=== PATIENT | female | born 1985 | race Caucasian/White ===

== ENCOUNTER → 2017-12-19 10:47 | Outpatient (CLI) | payer MEDICAID, SELFPAY ==
[2017-12-19 14:02] LABS: Chlamydia Trachomatis by PCR Negative (Negative); Neisserai gonorrhoeae by PCR Negative (Negative); Probe Check PASS; Sample Adequacy Control PASS; Specimen Processing Control PASS
[2017-12-21 13:02] LABS: HPV Reflexed? NOT INDICATED
== END ==
PROVIDERS: Visit Provider Obstetrics & Gynecology
DX: Z12.4 Encounter for screening for malignant neoplasm of cervix (principal); Z11.3 Encounter for screening for infections with a predominantly sexual mode of transmission
CPT/HCPCS: 87491; 87591; 88175; G0145

== ENCOUNTER 2018-05-09 13:05 | Outpatient (CLI) | payer SELFPAY ==
[2018-05-09 13:33] VITALS: BMI 28.8
[2018-05-09 13:45] LABS: Mucous, Urine 0 SEEN /hpf (<or=2+); Red Blood Cells-Urine 0 SEEN /hpf (0-5)
[2018-05-09 13:58] LABS: Color, Urine Yellow (Yellow); Glucose, Dipstick Normal (Normal); Ketone-Dipstick Negative (Negative); Leukocyte Esterase-Dipstick Negative /ul (Negative); Nitrite-Dipstick Negative (Negative); Occult Blood-Urine Negative /ul (Negative); Protein-Dipstick Negative (Negative); Urine Bilirubin Dipstick Negative (Negative); Urine Clarity Sl. Cloudy (Clear); Urine Urobilinogen Normal (Normal)
[2018-05-09 14:10] LABS: Bacteria RARE /hpf (None Seen); Squamous Epithelial Cells - UA 0-5 SEEN /hpf (5-10); White Blood Cells 0-5 SEEN /hpf (0-5)
[2018-05-09 15:56] LABS: Fetal Fibronectin Negative
--- NOTE | 2018-05-09 22:34 | OB.TRI.NOTE ---
History of Present Illness Was patient seen by the physician?: No Reason For Visit: R/O PRE TERM LABOR Date of Service: 05/09/18 Final SULTANA: 08/12/18 Final SULTANA Source: US <20 weeks Gestational age: 26 Weeks and 3 Days History of Present Illness: 26+ week intrauterine presents with some mild contractions to labor and delivery. Apparently this is been a problem for her for the past several weeks and she has seen physicians in [place] where she resides for this problem. Michelle was seen early in the by Dr. Miranda and decided to move to [place]. She recently came to [place] and when she began having these contractions presented to labor and delivery. Her last baby had cystic fibrosis so the patient is a known carrier. She also had a previous . Allergies bupropion [From Wellbutrin] Allergy (Verified 12/21/16 06:59) Other tachycardia prednisone Allergy (Verified 12/21/16 06:59) Other muscle spasms Laboratory Studies: Laboratory Tests 05/09/18 05/09/18 Range/Units 15:00 13:20 Urine Color Yellow (Yellow) Urine Clarity Sl. Cloudy (Clear) Urine pH 7.0 (5.0 - 8.0) Ur Specific [place] 1.010 (1.002-1.030) Urine Protein Negative (Negative) mg/dl Urine Glucose (UA) Normal (Normal) mg/dl Urine Ketones Negative (Negative) mg/dl Urine Occult Blood Negative (Negative) /ul Urine Nitrite Negative (Negative) Urine Bilirubin Negative (Negative) mg/dL Urine Urobilinogen Normal (Normal) mg/dl Ur Leukocyte Esterase Negative (Negative) /ul Urine RBC 0 SEEN (0-5) /hpf Urine WBC 0-5 SEEN (0-5) /hpf Ur Squamous Epith Cells 0-5 SEEN (5-10) /hpf Urine Bacteria RARE (None Seen) /hpf Urine Mucus 0 SEEN (<or=2+) /hpf Fibronectin Negative NST - FHR Rate Baby A NST Reactive:: Appropriate for gestational age Uterine Activity:: Mild uterine irritability noted. Impression/Plan 26+ week intrauterine with transient contractions. Cervix is nonthreatening and closed thick and high. fibronectin done and was negative. Will discharge patient to home and encouraged bed rest and plenty of fluids. She is instructed to follow-up with either our office or her office in [place] early next week. Return immediately if contractions grow stronger or if she has any leaking of fluid or bleeding.
== END 2018-05-09 16:51 | disposition home or self-care (01) ==
LOC: WPOUT 13:29 → WP 13:30
PROVIDERS: Referring Provider Obstetrics & Gynecology; Visit Provider Obstetrics & Gynecology
DX: O34.211 Maternal care for low transverse scar from previous cesarean delivery (principal); Z14.1 Cystic fibrosis carrier; Z3A.26 26 weeks gestation of pregnancy
CPT/HCPCS: 59025; 59050; 81001; 82731; 99218; G0378

== ENCOUNTER 2022-01-07 22:15 | Emergency (ER) | payer MEDICAID, SELFPAY ==
[2022-01-07 22:15] VITALS: BP 120/82; PULSE 68; RESP 16; TEMP 36.7; O2SAT 99; BMI 29.4
--- NOTE | 2022-01-07 22:34 | EDS_ITS ---
HPI History of Present Illness Chief Complaint: Other, Pain/Inj Informant: patient Narrative Narrative: 6-year-old female presenting to the emergency department with acute neck pain. Patient states that August and September she had pain in her neck was seen at a [facility] facility was told that she had C4 and C5 slippage. 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 She followed up with neurology this past week and has MRI scheduled for next week. Today she was getting out of the shower and getting ready and all of a sudden had significant pain in her upper neck. She states she feels better if she lifts her head up off of her neck to decompress it. She states she has limited mobility because of pain. She notes that she started Humira about 2 months ago. She does not get chronic back injections. She has no IVD use, chronic steroid use, fevers, or known trauma. [facility] Medical History (Updated 01/07/22 @ 22:[address] Jerry Finley DO) Depression Home Medications adalimumab 40 mg/0.8 mL subcutaneous syringe kit (Humira) mg subcut 01/07/22 [History Last Taken Unknown] atorvastatin 10 mg tablet 10 mg PO QHS 01/07/22 [History Last Taken Unknown] cholecalciferol (vitamin D3) 50 mcg (2,000 unit) tablet (Vitamin D3) 50 mcg PO DAILY 01/07/22 [History Last Taken Unknown] diazepam 5 mg tablet 5 mg PO Q8 PRN Muscle Spasm #16 tabs 01/07/22 [Rx Last Taken Unknown] ferrous sulfate 325 mg (65 mg iron) tablet (Iron (ferrous sulfate)) 325 mg PO DAILY 01/07/22 [History Last Taken Unknown] fluoxetine 20 mg capsule (Prozac) 20 mg PO DAILY 01/07/22 [History Last Taken Unknown] gabapentin 300 mg capsule 300 mg PO BID 01/07/22 [History Last Taken Unknown] oxycodone-acetaminophen 5 mg-325 mg tablet 1 tab PO Q6H PRN PRN Pain 3 days #12 TABLETS 01/07/22 [Rx Last Taken Unknown] Allergy/AdvReac Type Severity Reaction Status Date / Time No Known Allergies Allergy Verified 01/07/22 22:21 Surgical History (Updated 01/07/22 @ 22:[address] Jerry Finley DO) Previous delivery affecting , delivered Social History Smoking Status: Former smoker substance use type: does not use ROS ROS ED Constitutional Constitutional ED: Denies chills or weight loss Eyes Eyes: Denies change in vision or diplopia ENT ENT ED: Denies ear pain, rhinorrhea or sore throat Cardiovascular Cardiovascular: Denies chest pain, orthopnea, palpitations or racing heartbeat Respiratory/Chest Respiratory/Chest: Denies cough, dyspnea or orthopnea Gastrointestinal Gastrointestinal: Denies abdominal pain, diarrhea, nausea or vomiting Genitourinary Genitourinary ED: Denies dysuria, hematuria or urinary frequency Musculoskeletal Musculoskeletal: Reports neck pain; Denies arthralgias, back pain or myalgias Integumentary Denies abscess or rash Neurologic Neurologic: Denies headache(s) or weakness Psychiatric Psychiatric: Denies anxiety, depression, suicidal ideation or suicidal thoughts Endocrine Endocrinology: Denies polydipsia, polyphagia or polyuria Allergic/Immunologic Allergic/Immunologic ED: Denies mouth swelling, tongue swelling or urticaria EXAM Physical Exam Const Vital Signs: 01/07/22 22:15 Temperature 98.1 F Temperature Source Temporal Pulse Rate 68 Respiratory Rate 16 Blood Pressure 120/82 H Blood Pressure Mean 94 Pulse Ox 99 Oxygen Delivery Method Room Air Positive well nourished and well developed General Appearance ED: well developed HEENT Reports normocephalic, head/scalp atraumatic and moist mucous membranes Eyes PERRL and EOMs intact bilaterally Neck no lymphadenopathy, supple and no JVD Neck Narrative: Patient is limited range of motion of the neck. She has tenderness to palpation of the suboccipital triangle region. There are no tissue texture changes to suggest underlying infection. Upper extremities test normal in motor and sensation. Resp normal respiratory effort and clear to auscultation bilaterally Cardio regular rate, regular rhythm and no murmurs GI normal to inspection, nondistended, normoactive bowel sounds and non-tender Palpation: soft Back/Spine no CVA tenderness and normal ROM Extremity normal to inspection General Extremety ED: Negative for edema General Extremity: Negative for edema Neuro oriented x3 and CN's II-XII intact bilaterally Sensorium / Orientation: alert Motor Exam: strength 5/5 throughout Psych mental status grossly normal Mood & Affect: Negative for depressed or tearful Skin no rashes or lesions noted and no wounds MDM MDM MDM Narrative Medical decision making narrative: I believe this to be muscular in nature. I will write for the patient to have some Valium and pain medication at home. Would recommend following up with her doctors as scheduled. Discharge Plan Triage Chief Complaint: Other, Pain/Inj ED Provider: Jerry Finley Dx/Rx/DC Orders Clinical Impression: Acute neck pain, Acute cervical myofascial strain Instructions: ED Neck Pain Prescriptions: New oxycodone-acetaminophen [oxycodone-acetaminophen] 5-325 mg tablet 1 tab PO Q6H PRN PRN (Reason: Pain) 3 Days Qty: 12 0RF diazepam [diazepam] 5 mg tablet 5 mg PO Q8 PRN (Reason: Muscle Spasm) Qty: 16 0RF No Action gabapentin 300 mg Capsule 300 mg PO BID fluoxetine [Prozac] 20 mg Capsule 20 mg PO DAILY Humira 40 mg/0.8 mL Syringe Kit SUBCUT Rx Instructions: inject one - 40 mg/0.8 mL syringe every 2 weeks atorvastatin 10 mg Tablet 10 mg PO QHS ferrous sulfate [Iron (ferrous sulfate)] 325 mg (65 mg iron) Tablet 325 mg PO DAILY cholecalciferol (vitamin D3) [Vitamin D3] 50 mcg (2,000 unit) Tablet 50 mcg PO DAILY Primary Care Provider: Care Physician,No Primary Referrals: Soren Vasquez MD [NON-STAFF] - Keep [facility] appointment Care Physician,No Primary [Primary Care Provider] - Disposition Disposition: Home, Self Care
[2022-01-07] MEDS: Ketorolac 60 MG/2 ML Vial IM (22:42)
[2022-01-07] MEDS: oxyCODONE 5 MG Tablet PO (22:42)
[2022-01-07] MEDS: diazePAM 5 MG Tablet PO (22:42)
== END 2022-01-07 23:12 | disposition home or self-care (01) ==
LOC: ED 23:03
PROVIDERS: Emergency Provider Emergency Medicine; Visit Provider Emergency Medicine
DX: S16.1XXA Strain of muscle, fascia and tendon at neck level, initial encounter (principal); Z87.891 Personal history of nicotine dependence; M54.2 Cervicalgia; F32.A Depression, unspecified; X58.XXXA Exposure to other specified factors, initial encounter
CPT/HCPCS: 96372; 99282

== ENCOUNTER 2022-01-24 18:44 | Emergency (ER) | payer MEDICAID, SELFPAY ==
[2022-01-24 18:46] VITALS: BP 128/85; PULSE 80; RESP 15; TEMP 37; O2SAT 99; BMI 30.7
--- NOTE | 2022-01-24 18:46 | NURSING ---
Stroke alert cancelled per Dr. Smith.
[2022-01-24 18:54] VITALS: BP 128/85; PULSE 73; RESP 18; TEMP 37; O2SAT 98
--- NOTE | 2022-01-24 18:57 | CT_ITS ---
STUDY: CT BRAIN WITHOUT CONTRAST REASON FOR EXAM: Female, 36 years old. Change in mental RADIATION DOSAGE (If Supplied By Facility): CTDIvol = ( 44.99 ) mGy, DLP = ( 812.8 ) mGycm TECHNIQUE: Transaxial CT imaging of the brain was performed without administration of intravenous contrast material. Individualized dose optimization techniques were used for this CT. COMPARISON: No relevant priors. FINDINGS: There is no intra-/extra-axial fluid collection, mass effect, or midline shift. The barry/white matter junction is preserved. The basal cisterns are patent. Visualized paranasal sinuses and mastoid air cells are clear. The calvarium is intact. CT/Brain/Head without Contrast IMPRESSION: No acute intracranial finding. MRI may be obtained if clinically indicated. Electronically Signed: Sabino Jackson MD at 19:57 EDT ,
--- NOTE | 2022-01-24 18:57 | EX.ED.DYSGE1 ---
HPI History of Present Illness Chief Complaint: Confusion Detail of Chief Complaint: Total body tingling and confusion. Informant: patient Onset/Context/Timing Onset: Today and Hours (While driving home from work) Current Severity: Moderate Maximum Severity: Moderate Worsened by: Unknown Relieved by: Nothing Associated Symptoms Associated Symptoms: Total body numbness and difficulty moving her arms and legs Narrative Narrative: Patient is a 36-year-old woman with history of hypercholesterolemia, iron deficiency anemia and depression. She is on immunosuppressive meds. There is no history of trauma. She denies double vision, blurred vision loss of vision. She has trouble with speech or swallowing. She denies cardiac respiratory symptoms. She denies GI symptoms. Patient states she cannot move her arms or legs. Prior similar symptoms: No Recent Illness/Hospitalization: No PFSH PFSH Medical History Depression Home Medications adalimumab 40 mg/0.8 mL subcutaneous syringe kit (Humira) mg subcut 01/07/22 [History Last Taken Unknown] atorvastatin 10 mg tablet 10 mg PO QHS 01/07/22 [History Last Taken Unknown] cholecalciferol (vitamin D3) 50 mcg (2,000 unit) tablet (Vitamin D3) 50 mcg PO DAILY 01/07/22 [History Last Taken Unknown] diazepam 5 mg tablet 5 mg PO Q8 PRN Muscle Spasm #16 tabs 01/07/22 [Rx Last Taken Unknown] ferrous sulfate 325 mg (65 mg iron) tablet (Iron (ferrous sulfate)) 325 mg PO DAILY 01/07/22 [History Last Taken Unknown] fluoxetine 20 mg capsule (Prozac) 20 mg PO DAILY 01/07/22 [History Last Taken Unknown] gabapentin 300 mg capsule 300 mg PO BID 01/07/22 [History Last Taken Unknown] Allergy/AdvReac Type Severity Reaction Status Date / Time No Known Allergies Allergy Verified 01/24/22 18:52 Surgical History Previous delivery affecting , delivered Social History (Updated 01/24/22 @ 21:[address] Timmy Smith MD) household members: spouse Smoking Status: Never smoker substance use type: does not use ROS ROS ED Constitutional Constitutional ED: Denies chills, fever(s), subjective, sweats or weight loss Eyes Eyes: Denies blurry vision, change in vision or diplopia ENT ENT ED: Denies ear pain, rhinorrhea or sore throat Cardiovascular Cardiovascular: Denies chest pain, palpitations or racing heartbeat Respiratory/Chest Respiratory/Chest: Denies cough, dyspnea or dyspnea on exertion Gastrointestinal Gastrointestinal: Denies abdominal pain, nausea or vomiting Genitourinary Genitourinary ED: Denies dysuria, hematuria or urinary frequency Musculoskeletal Musculoskeletal: Denies arthralgias, back pain, myalgias or neck pain Neurologic Neurologic: Reports paresthesias and weakness; Denies headache(s) Psychiatric Psychiatric: Denies anxiety or depression Endocrine Endocrinology: Denies cold intolerance, heat intolerance, polydipsia or polyphagia Hematologic/Lymphatic Hematologic/Lymphatic: Denies anemia or easy bruising Allergic/Immunologic Allergic/Immunologic ED: Denies mouth swelling, tongue swelling or urticaria EXAM Physical Exam Const Vital Signs: 01/24/22 18:46 01/24/22 18:54 01/24/22 20:16 Temperature 98.6 F 98.6 F Temperature Source Oral Oral Pulse Rate 80 73 70 Respiratory Rate 15 18 17 Blood Pressure 128/85 H 128/85 H 124/79 H Blood Pressure Mean 99 99 94 Pulse Ox 99 98 99 Oxygen Delivery Method Room Air Room Air Room Air Positive well nourished and well developed General Appearance ED: well developed and NAD; Negative for pallor HEENT Reports moist mucous membranes HEENT Narrative: Head is atraumatic normocephalic. Ears normal. TMs normal. Nares patent. Uvula midline. There is no erythema or exudate. Eyes PERRL and EOMs intact bilaterally Eyes Narrative: There is no nystagmus. There is no APD. There is no visual field cuts. General Eye ED: Negative for pale conjunctiva or scleral icterus Neck no lymphadenopathy, supple and no JVD Resp normal respiratory effort and clear to auscultation bilaterally Cardio regular rate, regular rhythm, S1 normal heart sound, S2 normal heart sound and no murmurs GI normal to inspection, nondistended, normoactive bowel sounds, non-tender and non-distended; Negative for hepatosplenomegaly Back/Spine no CVA tenderness Extremity normal to inspection General Extremety ED: Negative for edema or tenderness General Extremity: Negative for edema Neuro oriented x3, CN's II-XII intact bilaterally and No no sensory deficits noted Neuro Narrative: Patient states she was unable to elevate her legs off the bed however there was no effort. There is no downward force on the ipsilateral extremity. Motor Exam: Negative for strength 5/5 throughout Psych Psych Narrative: Patient has slow psychomotor skills. Mood & Affect: tearful Skin no rashes or lesions noted, no wounds and skin turgor normal General Skin Exam: Negative for jaundice or pallor MDM MDM MDM Narrative Medical decision making narrative: Nursing staff called stroke alert which was canceled by me. Patient has bilateral's Chv[place]ek sign with total body numbness and concerned she has hyperventilation. Need to determine etiology. 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 This is never happened to her before. Lab Data Attestation: I reviewed the patient's lab results. Lab results narrative: CBC, comprehensive metabolic panel are normal. I will hold it if screen is. UA is negative. CT of the head reviewed by me interpreted by radiologist as negative. I was informed by nursing staff during her evaluation that her symptoms totally resolved. Labs: Laboratory Results - last 24 hr 01/24/22 01/24/22 01/24/22 18:55 18:55 18:55 WBC 9.3 RBC 4.68 Hgb 13.7 Hct 41.3 MCV 88.2 MCH 29.3 MCHC 33.2 RDW Std Deviation 41.2 RDW Coeff of Jose M 12.7 Plt Count 211 MPV 12.9 H Immature Gran % (Auto) 0.400 Neut % (Auto) 56.5 Lymph % (Auto) 31.7 [place] % (Auto) 8.4 Eos % (Auto) 2.5 Baso % (Auto) 0.5 Absolute Neuts (auto) 5.3 Absolute Lymphs (auto) 2.95 Nucleated RBC % 0 Sodium 138 Potassium 3.5 Chloride 105 Carbon Dioxide 26.0 Anion Gap 7 BUN 14 Creatinine 1.06 H Estim Creat Clear Calc 71.35 Est GFR (MDRD) Af Amer 75 Est GFR (MDRD) Non-Af 62 BUN/Creatinine Ratio 13.2 Glucose 117 H Calcium 9.1 Total Bilirubin 0.30 AST 20 ALT 29 Alkaline Phosphatase 51 Total Protein 7.4 Albumin 3.9 Globulin 3.5 Albumin/Globulin Ratio 1.1 Urine Color Urine Clarity Urine pH Ur Specific [place] Urine Protein Urine Glucose (UA) Urine Ketones Urine Occult Blood Urine Nitrite Urine Bilirubin Urine Urobilinogen Ur Leukocyte Esterase Urine RBC Urine WBC Ur Squamous Epith Cells Urine Bacteria Urine Mucus Urine Opiates Screen Urine Methadone Screen Ur Barbiturates Screen Ur Phencyclidine Scrn Ur Amphetamines Screen MDMA (Ecstasy) Screen U Benzodiazepines Scrn Urine Cocaine Screen U Cannabinoids Screen Ur Drug Screen Comment Ethyl Alcohol 4.0 01/24/22 01/24/22 20:05 20:05 WBC RBC Hgb Hct MCV MCH MCHC RDW Std Deviation RDW Coeff of Jsoe M Plt Count MPV Immature Gran % (Auto) Neut % (Auto) Lymph % (Auto) [place] % (Auto) Eos % (Auto) Baso % (Auto) Absolute Neuts (auto) Absolute Lymphs (auto) Nucleated RBC % Sodium Potassium Chloride Carbon Dioxide Anion Gap BUN Creatinine Estim Creat Clear Calc Est GFR (MDRD) Af Amer Est GFR (MDRD) Non-Af BUN/Creatinine Ratio Glucose Calcium Total Bilirubin AST ALT Alkaline Phosphatase Total Protein Albumin Globulin Albumin/Globulin Ratio Urine Color Straw Urine Clarity Clear Urine pH 7.0 Ur Specific [place] 1.010 Urine Protein Negative Urine Glucose (UA) Normal Urine Ketones Negative Urine Occult Blood Negative Urine Nitrite Negative Urine Bilirubin Negative Urine Urobilinogen Normal Ur Leukocyte Esterase Negative Urine RBC 0 SEEN Urine WBC 0 SEEN Ur Squamous Epith Cells 0 SEEN Urine Bacteria 0 SEEN Urine Mucus 0 SEEN Urine Opiates Screen NEGATIVE Urine Methadone Screen NEGATIVE Ur Barbiturates Screen NEGATIVE Ur Phencyclidine Scrn NEGATIVE Ur Amphetamines Screen NEGATIVE MDMA (Ecstasy) Screen NEGATIVE U Benzodiazepines Scrn POSITIVE H Urine Cocaine Screen NEGATIVE U Cannabinoids Screen NEGATIVE Ur Drug Screen Comment Ethyl Alcohol ABG Data ABG results: ABG 01/24/22 19:01 Specimen Type ART Sample Site R Radial pH 7.46 H Bicarbonate Actual 24.3 Total CO2 25 Base Excess 0 O2 Saturation 99 ABG pCO2 34.4 L ABG pO2 136 H Ottoniel Test Positive O2 Delivery Device Room Air Radiography Diagnostic Testing: Clinical Impression(s) from Imaging Studies Brain CT 01/24/22 18:57 IMPRESSION: No acute intracranial finding. MRI may be obtained if clinically indicated. Electronically Signed: Sabino Jackson MD at 19:57 EDT Reading Location ID and State: [facility] / [place] Tel , Service support , Treatment and Re-Evaluation Narrative: was informed that based on her history physical negative work-up and the fact that she resolved spontaneously that this is a conversion reaction. Discharge Plan Triage Chief Complaint: Confusion ED Provider: Timmy Smith Dx/Rx/DC Orders Clinical Impression: Conversion reaction, Hyperventilation syndrome Instructions: ED Hyperventilation Syndrome, ED Conversion Disdr Conversion Reac Prescriptions: No Action gabapentin 300 mg Capsule 300 mg PO BID fluoxetine [Prozac] 20 mg Capsule 20 mg PO DAILY Humira 40 mg/0.8 mL Syringe Kit SUBCUT Rx Instructions: inject one - 40 mg/0.8 mL syringe every 2 weeks atorvastatin 10 mg Tablet 10 mg PO QHS ferrous sulfate [Iron (ferrous sulfate)] 325 mg (65 mg iron) Tablet 325 mg PO DAILY cholecalciferol (vitamin D3) [Vitamin D3] 50 mcg (2,000 unit) Tablet 50 mcg PO DAILY diazepam [diazepam] 5 mg tablet 5 mg PO Q8 PRN (Reason: Muscle Spasm) Qty: 16 0RF Primary Care Provider: Care Physician,No Primary Referrals: Care Physician,No Primary [Primary Care Provider] - Doctor,Your [STAFF PHYSICIAN] - 1-2 Weeks Disposition Disposition: Home, Self Care
--- NOTE | 2022-01-24 19:00 | CM.ED ---
Social Work Note Reason for Referral: Stroke Team called SW in to speak with pt and pt's Luisito present in room. While SW was in room, SW updated that Stroke team was cancelled for pt. SW informed Luisito to let this worker know if he needs anything. SW to remain available should additional needs arise. Emma Macias ORDER MANAGER, [employer]
[2022-01-24 19:06] LABS: Allen Test Positive; Base Excess 0 mmol/L (-2 to +2); Bicarbonate 24.3 mmol/L (22-26); Blood Gas Specimen Type ART; O2 Delivery Device Room Air; PO2 136 mmHG (75-100); SITE R Radial; SO2 99 % (95-99); Total Carbon Dioxide 25 mmol/L; pCO2 34.4 mmHg (35-45); pH 7.46 (7.35-7.45)
[2022-01-24 19:19] LABS: Absolute Lymphocyte Count 2.95 X10^3/uL (0.83-4.51); Absolute Neutrophil Count 5.3 X10^3/uL (2.0-7.7); Basophil# 0.05 X10^3/uL; Basophil% 0.5 % (0-1); Eosinophil# 0.23 X10^3/uL; Eosinophils% 2.5 % (0-5); Hematocrit 41.3 % (37-47); Hemoglobin 13.7 g/dL (12.0-15.0); Lymphocyte # 2.95 X10^3/ul (0.83-4.51); Lymphocyte % 31.7 % (19-41); Mean Corp Hgb Conc 33.2 g/dL (32-36); Mean Corpuscular Hgb 29.3 pg (27.0-32.0); Mean Corpuscular Volume 88.2 fL (81-99); Mean Platelet Vol. 12.9 fl (6.2-12.0); Monocyte# 0.78 X10^3/uL; Monocyte% 8.4 % (0-10); NRBC Flagged by Analyzer 0 % (0-5); Neutrophil # 5.26 X10^3/uL (2.7-7.7); Neutrophil % 56.5 % (47-70); Platelet Count 211 K/mm3 (150-450); RBC Distribution Width CV 12.7 % (11.6-14.6); RBC Distribution Width SD 41.2 fl (35.1-43.9); Red Blood Count 4.68 M/mm3 (4.2-5.4); White Blood Count 9.3 K/mm3 (4.4-11.0)
[2022-01-24 20:16] VITALS: BP 124/79; PULSE 70; RESP 17; O2SAT 99
[2022-01-24 20:16] LABS: Bacteria 0 SEEN /hpf (None Seen); Mucous, Urine 0 SEEN /hpf (<or=2+); Red Blood Cells-Urine 0 SEEN /hpf (0-5); Squamous Epithelial Cells - UA 0 SEEN /hpf (5-10); White Blood Cells 0 SEEN /hpf (0-5)
[2022-01-24 20:23] LABS: Color, Urine Straw (Yellow); Glucose, Dipstick Normal (Normal); Ketone-Dipstick Negative (Negative); Leukocyte Esterase-Dipstick Negative /ul (Negative); Nitrite-Dipstick Negative (Negative); Occult Blood-Urine Negative /ul (Negative); Protein-Dipstick Negative (Negative); Urine Bilirubin Dipstick Negative (Negative); Urine Clarity Clear (Clear); Urine Urobilinogen Normal (Normal)
[2022-01-24 20:40] LABS: Amphetamine Urine VISTA NEGATIVE (<1000 ng/mL); Barbiturate Urine VISTA NEGATIVE (< 200 ng/mL); Benzodiazepine Urine VISTA POSITIVE (< 200 ng/mL); Cocaine Urine VISTA NEGATIVE (< 300 ng/mL); Ecstacy Urine VISTA NEGATIVE (< 500 ng/mL); Methadone Urine VISTA NEGATIVE (< 300 ng/mL); PCP Urine VISTA NEGATIVE (< 25 ng/mL); THC Urine VISTA NEGATIVE (< 50 ng/mL); Vista UDS pH Range 7
[2022-01-24 21:29] LABS: ALB/GLOB Ratio 1.1 RATIO (0.9-2.4); AST(SGOT) 20 U/L (15-37); Alanine Aminotransfer ALT/SGPT 29 U/L (13-56); Albumin, Serum 3.9 g/dL (3.2-5.0); Alkaline Phosphatase 51 U/L (45-117); Anion Gap 7 (5-15); BUN 14 mg/dL (7-18); BUN/Creat Ratio 13.2 RATIO (10-20); Calcium,Total 9.1 mg/dL (8.5-10.1); Chloride 105 mmol/L (98-107); Creatinine, Serum 1.06 mg/dL (0.55-1.02); EST Glomerular Filtration Rate 62 mL/min (>60); Est Glom Filt Rate - Afr Amer 75 mL/min (>60); Estimated Creatinine Clearance 71.35 ml/min; Globulin 3.5 g/dL (2.2-4.2); Glucose 117 mg/dL (74-106); Potassium 3.5 mmol/L (3.5-5.1); Protein, Total 7.4 g/dL (6.4-8.2); Sodium Level 138 mmol/L (136-145)
[2022-01-25 07:25] LABS: Bedside Glucose 149 mg/dL (74-106)
== END 2022-01-24 21:59 | disposition home or self-care (01) ==
PROVIDERS: Emergency Provider Emergency Medicine; Visit Provider Emergency Medicine
DX: R41.0 Disorientation, unspecified (principal); E78.00 Pure hypercholesterolemia, unspecified; R06.4 Hyperventilation; F44.9 Dissociative and conversion disorder, unspecified; F32.A Depression, unspecified; Z79.899 Other long term (current) drug therapy; D50.9 Iron deficiency anemia, unspecified
CPT/HCPCS: 36600; 70450; 80053; 80307; 81001; 82077; 82803; 82962; 85025; 99282; A4216

== ENCOUNTER 2023-12-19 23:06 | Emergency (ER) | payer MEDICAID, SELFPAY ==
[2023-12-19 23:06] VITALS: BP 140/90; PULSE 59; RESP 16; TEMP 36.5; O2SAT 100; BMI 31.4
--- NOTE | 2023-12-19 23:36 | EDS_ITS ---
HPI History of Present Illness Chief Complaint: Abd Pain Informant: patient Narrative Narrative: Patient is a 38-year-old female with past medical history of hyperlipidemia as well as ankylosing spondylitis. She states that she has been having intermittent right upper abdominal pain mainly after eating. She had concerned this could be her gallbladder. Secondary to this she went to an outside hospital where she had a CT scan obtained which revealed no obvious findings and this was followed up by an ultrasound which also revealed no sign of acute gallbladder dysfunction. Patient states that despite the negative images she has been having recurrent symptoms and therefore comes in for a second opinion. [facility] Medical History (Updated 12/20/23 @ 00:[address] Daniele Salguero DO) Ankylosing spondylitis Depression Home Medications ?Medication ?Instructions ?Recorded ?Last Taken ?Type oxycodone-acetaminophen 5 mg-325 1 tab PO Q6H PRN pain 3 days #12 12/19/23 Unknown Rx mg tablet (Percocet) tabs tofacitinib 5 mg tablet (Xeljanz) 5 mg PO BID 12/19/23 Unknown History Allergy/AdvReac Type Severity Reaction Status Date / Time No Known Allergies Allergy Verified 12/19/23 23:07 Surgical History Previous delivery affecting , delivered Social History (Updated 01/24/22 @ 21:[address] Timmy Smith MD) household members: spouse Smoking Status: Never smoker substance use type: does not use ROS ROS ED Constitutional Constitutional ED: Denies chills or fever(s) ENT ENT ED: Denies sore throat Cardiovascular Cardiovascular: Denies chest pain Respiratory/Chest Respiratory/Chest: Denies cough or dyspnea Gastrointestinal Gastrointestinal: Reports abdominal pain and nausea; Denies diarrhea or vomiting Genitourinary Genitourinary ED: Denies dysuria or hematuria Musculoskeletal Musculoskeletal: Denies myalgias Integumentary Denies rash Neurologic Neurologic: Denies headache(s) Hematologic/Lymphatic Hematologic/Lymphatic: Denies easy bleeding or easy bruising EXAM Physical Exam Const Vital Signs: 12/19/23 23:06 12/19/23 23:55 Temperature 97.7 F L 97.9 F Temperature Source Temporal Pulse Rate 59 L 70 Respiratory Rate 16 16 Blood Pressure 140/90 H 137/90 H Blood Pressure Mean 106 105 Pulse Ox 100 97 Positive well nourished, well developed and obese General Appearance ED: well developed; Negative for pallor Nutritional Appearance: obese HEENT HEENT Narrative: Normocephalic atraumatic Eyes PERRL and EOMs intact bilaterally General Eye ED: Negative for pale conjunctiva or scleral icterus Neck supple Neck Narrative: No nuchal rigidity or meningeal signs Resp normal respiratory effort and clear to auscultation bilaterally Cardio regular rate and regular rhythm Rate: other Other Details: Heart is regular rate and rhythm without murmurs rubs or gallops Radial and carotid pulses are equal and symmetric GI non-distended GI Narrative: Abdomen is soft and nondistended with normal active bowel sounds. Patient has pain with palpation in the midepigastric and right upper quadrant region but greatest in the right upper quadrant. No voluntary guarding or rigidity. Negative Wise sign. No pulsatile mass or fluid wave. Auscultation: normoactive bowel sounds Palpation: soft Back/Spine no CVA tenderness Extremity normal to inspection Extremity Narrative: No asymmetric edema no pitting edema negative Homans' sign bilaterally Neuro oriented x3, CN's II-XII intact bilaterally and no sensory deficits noted Sensorium / Orientation: alert Motor Exam: strength 5/5 throughout Psych mental status grossly normal Skin no rashes or lesions noted, no wounds and skin turgor normal General Skin Exam: Negative for jaundice or pallor MDM MDM MDM Narrative Medical decision making narrative: Patient arrived to the ER hypertensive otherwise with stable vitals. She reported right upper quadrant abdominal pain that was worse after eating and differential diagnosis is for biliary colic versus acute cholecystitis versus pancreatitis versus duodenitis versus gastritis. Patient reported she already had a CT scan and ultrasound that revealed no obvious findings and therefore did not feel the need for repeat imaging studies. I did offer patient repeat laboratory studies initially and informed her that we could potentially talk to general surgery or have repeat imaging based on the labs if they show significant abnormality. I also informed the patient that her gallbladder could still be the cause despite normal ultrasound and CT scan and this would only show up on a potential HIDA scan which is not done in the ER. She was informed that without signs of acute cholecystitis there is no need for emergent admission or gallbladder removal. The patient states she will wait to follow-up with her family doctor and does not want any further testing done. I will provide her with pain medication at this time but as she has a soft nonsurgical abdomen with negative Wise sign and reported negative ultrasound and CT scan in the last 24 hours I do not feel the need for further workup History & Record Review Discussion w/independent historian: Patient Discharge Plan Triage Chief Complaint: Abd Pain ED Provider: Daniele Salguero Dx/Rx/DC Orders Clinical Impression: Right upper quadrant abdominal pain, Hypercholesterolemia, Ankylosing spondylitis Instructions: ED Abdominal Pain Gallstone Poss Prescriptions: New oxycodone-acetaminophen [Percocet] 5-325 mg tablet 1 tab PO Q6H PRN (Reason: pain) 3 Days Qty: 12 0RF No Action Xeljanz 5 mg tablet 5 mg PO BID Primary Care Provider: [place] Referrals: Stefanie Roth MD [Med Staff - Active Staff] - Care Physician,No Primary [Non-Staff] - Activity Restrictions/Additional Instructions: Based on your physical exam and history there is high likelihood that you have gallbladder dysfunction. As you have already had an ultrasound and CT scan that did not show signs of gallbladder infection there is no need for emergent removal. Eat smaller more frequent meals that are bland in nature to try and reduce symptoms. Follow-up with general surgery or your family doctor as you will now need a HIDA scan to further assess your gallbladder. Return to the ER should you have any further concerns Print Language: Upper Sorbian Disposition Disposition: Home, Self Care Discharge Date/Time: 12/19/23 23:58
[2023-12-19] MEDS: oxyCODONE 5 MG Tablet 10 MG GT (23:54)
[2023-12-19 23:55] VITALS: BP 137/90; PULSE 70; RESP 16; TEMP 36.6; O2SAT 97
== END 2023-12-19 23:58 | disposition home or self-care (01) ==
PROVIDERS: Emergency Provider Emergency Medicine; Visit Provider Emergency Medicine
DX: R10.11 Right upper quadrant pain (principal); M45.9 Ankylosing spondylitis of unspecified sites in spine; E78.00 Pure hypercholesterolemia, unspecified
CPT/HCPCS: 99282